=== PATIENT | female | born 1995 | race Two or more races ===

== ENCOUNTER 2017-07-05 11:56 | Emergency (ER) | payer MEDICAID ==
[~2017-07-05] VITALS: Ht 157.5 cm; Wt 99.8 kg
[2017-07-05 12:07] VITALS: BP 131/68
[2017-07-05] MEDS ORDERED: cefTRIAXone SOD 1,000 MG VL IM ONE (12:30)
[2017-07-05] MEDS ORDERED: methylPREDNISolone SOD SUCC 125 MG/2 ML VL IM ONE (12:30)
== END 2017-07-05 13:09 | disposition home or self-care (01) ==
LOC: ER 12:06
DX: J03.90 Acute tonsillitis, unspecified (principal)
CPT/HCPCS: 96372; 99284; J0696; J2930

== ENCOUNTER 2021-12-08 11:39 | Emergency (ER) | payer MEDICAID, OTHER ==
[~2021-12-08] VITALS: Ht 154.9 cm; Wt 113.4 kg
[2021-12-08 12:27] VITALS: BP 139/104
[2021-12-08] MEDS ORDERED: AMOX500T86 PO (12:57)
[2021-12-08] MEDS ORDERED: TETANUS-DIPTH-ACEL PERTUSSIS 0.5ML SYR Tdap IM ONE (13:00)
== END 2021-12-08 13:10 | disposition home or self-care (01) ==
LOC: ER 11:39
DX: S11.95XA Open bite of unspecified part of neck, initial encounter (principal); W54.0XXA Bitten by dog, initial encounter; Y93.89 Activity, other specified; Y92.89 Other specified places as the place of occurrence of the external cause; Y99.8 Other external cause status
CPT/HCPCS: 90471; 90715